=== PATIENT | male | born 1935 | race Caucasian/White ===

== ENCOUNTER → 2016-07-24 | Outpatient (CLI) | payer OTHER, MEDICARE ==
[~2016-07-24] MED LIST: ASPIR 8181 M1 PO; ATROVENT 0.03%30 ML BOTH NARES; CARVEDILOL6.25 MG PO; DULCOLAX5 MG PO; EYE DROP TEARS15 ML LEFT EYE; IMDUR120 MG PO; METFORMIN HCL500 MG PO; MUCINEX600 MG PO; RAMIPRIL10 MG PO; [UNRECOGNIZED DRUG - OTHER] NS
== END | disposition home or self-care (01) ==
LOC: AMB 07-22 13:00
DX: M48.06 Spinal stenosis, lumbar region (principal); R26.2 Difficulty in walking, not elsewhere classified; Z98.1 Arthrodesis status; M54.2 Cervicalgia; M48.02 Spinal stenosis, cervical region; M48.04 Spinal stenosis, thoracic region
CPT/HCPCS: 62303; 72040; 72126; 72129; 72132